=== PATIENT | female | born 1995 | race African-American/Black ===

== ENCOUNTER 2024-11-06 21:08 | Inpatient (IN) | payer OTHER ==
[~2024-11-06] VITALS: Ht 175.3 cm; Wt 76.5 kg
[2024-11-06] MEDS: DiphenhydrAMINE HCL 50 MG/ML VIAL IM ONE (22:46)
[2024-11-06] MEDS: HALOPERIDOL LACTATE 5 MG/ML VIAL IM ONE (22:46)
[2024-11-06] MEDS: LORazepam 2 MG/ML VIAL IM ONE (22:47)
[2024-11-06 22:49] LABS: COVID AG,FIA SOURCE NASAL SWAB
[2024-11-06 23:12] LABS: SARS-COV2 (COVID) ANTIGEN,FIA Negative (Negative)
[2024-11-07] MEDS: ZIPRASIDONE MESYLATE 20 MG/VIAL IM ONE (00:50)
[2024-11-07 02:53] VITALS: O2SAT 100
[2024-11-07] MEDS ORDERED: ChlorproMAZINE HCL 25 MG TABLET PO PRN (03:30)
[2024-11-07] MEDS ORDERED: ZOLPIDEM TARTRATE 10 MG TABLET PO PRN (03:30)
[2024-11-07 05:53] VITALS: BP 149/94; PULSE 93; RESP 18; TEMP 97.5; O2SAT 99
[2024-11-07 08:25] LABS: BASOPHILS % (AUTO) 0.3 % (0.0-2.0); EOSINOPHILS % (AUTO) 1.1 % (1.0-6.0); HEMATOCRIT 41.7 % (36-46); HEMOGLOBIN 13.7 g/dL (12.0-16.0); LYMPHOCYTES # (AUTO) 3.3 K/uL (1.0-4.8); MEAN CORPUSCULAR HGB CONC 32.9 G/dL (31.0-37.0); MEAN CORPUSCULAR VOLUME 94 fL (80-100); MONOCYTES # (AUTO) 1.3 K/uL (0.1-1.0); MONOCYTES % (AUTO) 15.2 % (2.0-9.0); NEUTROPHILS # (AUTO) 3.9 K/uL (1.8-7.7); NEUTROPHILS % (AUTO) 45.4 % (40.0-70.0); PLATELET COUNT (AUTO) 240 K/uL (150-450); RED BLOOD CELL COUNT(AUTO) 4.44 MIL/uL (4.00-5.20); RED CELL DISTRIBUTION WIDTH 13.4 % (11.5-14.5); WHITE BLOOD COUNT (AUTO) 8.6 K/uL (4.5-11.0)
[2024-11-07 08:35] LABS: ANION GAP 7 mmol/L (8-16); CALCIUM, TOTAL 9.1 mg/dL (8.8-10.5); CARBON DIOXIDE 24 mmol/L (22-29); CHLORIDE 108 mmol/L (98-107); CREATININE 0.78 mg/dL (0.60-1.30); GLOMERULAR FILTR. RATE CALC > 60 mL/min (>60); GLUCOSE,RANDOM 86 mg/dL (70-110); SODIUM SERUM 139 mmol/L (136-145); UREA NITROGEN, BLOOD 10 mg/dL (7-18)
[2024-11-07 08:45] LABS: ALCOHOL, BLOOD (SERUM) < 3 mg/dL (0-10)
[2024-11-07] MEDS ORDERED: BENZOCAINE/MENTHOL [CEPACOL] LOZENGE PO PRN (10:15)
[2024-11-07] MEDS ORDERED: OMEPRAZOLE 20 MG CAPSULE PO PRN (10:15)
[2024-11-07] MEDS ORDERED: MAGNESIUM HYDROXIDE SUSPENSION 30 ML UDCUP PO PRN (10:15)
[2024-11-07] MEDS ORDERED: IBUPROFEN 600 MG TABLET PO PRN (10:15)
[2024-11-07] MEDS ORDERED: ONDANSETRON 4 MG TABLET PO PRN (10:15)
[2024-11-07] MEDS ORDERED: DOCUSATE SODIUM 100 MG CAPSULE PO PRN (10:15)
[2024-11-07] MEDS ORDERED: ACETAMINOPHEN 325 MG TABLET PO PRN (10:15)
[2024-11-07] MEDS ORDERED: PETROLATUM,WHITE 28 GM JELLY TP PRN (10:15)
[2024-11-07] MEDS ORDERED: MAG HYDROX/ALUMINUM HYD/SIMETH ES 30 ML SUSPENSION UDCUP PO PRN (10:15)
[2024-11-07] MEDS ORDERED: LOPERAMIDE HCL 2 MG CAPSULE PO PRN (10:15)
[2024-11-07] MEDS ORDERED: CloNIDine HCL 0.1 MG TABLET PO PRN (10:15)
[2024-11-07] MEDS ORDERED: ALBUTEROL SULFATE HFA 90 MCG/PUFF 8 GM INHALER IH PRN (10:15)
[2024-11-07] MEDS ORDERED: BACITRACIN 28 GM OINTMENT TP PRN (10:15)
[2024-11-07 10:35] VITALS: RESP 18
[2024-11-07] MEDS: LORazepam 1 MG TABLET PO PRN (15:28)
[2024-11-07] MEDS: MELATONIN 5 MG TABLET PO SCH (21:00)
[2024-11-07 22:47] VITALS: BP 137/80; PULSE 94; RESP 18; TEMP 98; O2SAT 100
[2024-11-08] MEDS: ARIPiprazole 5 MG TABLET PO SCH (08:34)
[2024-11-08 13:10] VITALS: BP 130/82; PULSE 109; RESP 16; TEMP 97.7; O2SAT 98
[2024-11-08 20:05] VITALS: BP 160/77; PULSE 102; RESP 18; TEMP 98; O2SAT 100
[2024-11-09 08:24] VITALS: BP 144/90; PULSE 78; RESP 18; TEMP 97; O2SAT 97
[2024-11-09] MEDS ORDERED: ARIP5TAB37 PO (14:46)
[2024-11-09] MEDS ORDERED: MELA5TAB40 PO (14:46)
[2024-11-09] MEDS: OLANZapine 5 MG TABLET PO SCH (21:09)
[2024-11-10 09:23] VITALS: BP 135/80; PULSE 66; RESP 17; TEMP 97.8; O2SAT 98
[2024-11-10 14:51] LABS: APPEARANCE,URINE CLEAR (CLEAR); BILIRUBIN,URINE NEGATIVE (NEGATIVE); COLOR,URINE COLORLESS (YELLOW); GLUCOSE, URINE (UA) NEGATIVE (NEGATIVE); KETONES,URINE NEGATIVE (NEGATIVE); LEUKOCYTE ESTERASE ,URINE NEGATIVE (NEGATIVE); NITRATE,URINE NEGATIVE (NEGATIVE); OCCULT BLOOD,URINE NEGATIVE (NEGATIVE); PROTEIN,URINE NEGATIVE (NEGATIVE); SPECIFIC GRAVITIY, URINE 1.009 (1.003-1.030); UROBILINOGEN,URINE <=1.0 mg/dL (<=1.0)
[2024-11-10 14:55] LABS: ALCOHOL, URINE DRUG SCREEN NEGATIVE (NEGATIVE); AMPHET/METH SCREEN,URINE NEGATIVE (NEGATIVE); BARBITURATE SCREEN, URINE NEGATIVE (NEGATIVE); BENZODIAZEPINES SCREEN,URINE NEGATIVE (NEGATIVE); CANNABINOID SCREEN,URINE POSITIVE (NEGATIVE); COCAINE SCREEN,URINE NEGATIVE (NEGATIVE); METHADONE SCREEN, URINE NEGATIVE (NEGATIVE); OPIATE SCREEN,URINE NEGATIVE (NEGATIVE); PHENCYCLIDINE SCREEN,URINE NEGATIVE (NEGATIVE)
[2024-11-10 23:55] VITALS: BP 117/83; PULSE 86; RESP 18; TEMP 97.2; O2SAT 97
[2024-11-11 09:24] VITALS: PULSE 70; RESP 17; TEMP 98; O2SAT 100
[2024-11-11 22:41] VITALS: BP 133/88; PULSE 69; RESP 18; TEMP 97.7; O2SAT 100
[2024-11-12 11:51] VITALS: BP 138/77; PULSE 113; RESP 17; TEMP 96.6; O2SAT 99
[2024-11-12 20:48] VITALS: BP 132/87; PULSE 88; RESP 18; TEMP 96.8; O2SAT 88; O2SAT 98
[2024-11-13] MEDS ORDERED: ChlorproMAZINE HCL 50 MG TABLET PO PRN (08:15)
[2024-11-13 08:31] VITALS: BP 32/90; PULSE 81; RESP 17; TEMP 97.9; O2SAT 96
[2024-11-13] MEDS ORDERED: MELA5TAB40 PO (14:59)
[2024-11-13] MEDS ORDERED: OLAN5TAB52 PO (14:59)
[2024-11-14] MEDS ORDERED: MELA5TAB40 PO (15:04)
[2024-11-14] MEDS ORDERED: OLAN5TAB52 PO (15:04)
== END 2024-11-13 17:20 | disposition home or self-care (01) | DRG 885 ==
LOC: EMS 21:08 → 3EC 11-07 05:30 → UNDOADMIN 11-07 05:30 → 3EC 11-07 05:58 → 3EI 11-10 08:14 → 3EC 11-10 08:14
PROVIDERS: ADMIT Psychiatry & Neurology Psychiatry; ATTEND Psychiatry & Neurology Psychiatry
PROC: GZHZZZZ Group Psychotherapy (ICD-10-PCS; principal; 2024-11-08)
PROC: GZ56ZZZ Individual Psychotherapy, Supportive (ICD-10-PCS; 2024-11-08)
DX: F25.0 Schizoaffective disorder, bipolar type (principal); F41.9 Anxiety disorder, unspecified; G47.00 Insomnia, unspecified; I10 Essential (primary) hypertension; K21.9 Gastro-esophageal reflux disease without esophagitis; Z20.822 Contact with and (suspected) exposure to COVID-19; F17.200 Nicotine dependence, unspecified, uncomplicated; F19.959 Other psychoactive substance use, unspecified with psychoactive substance-induced psychotic disorder, unspecified; Z55.9 Problems related to education and literacy, unspecified; J44.9 Chronic obstructive pulmonary disease, unspecified; Z56.0 Unemployment, unspecified; Z59.9 Problem related to housing and economic circumstances, unspecified; Z63.9 Problem related to primary support group, unspecified; Z65.3 Problems related to other legal circumstances; Z78.1 Physical restraint status; Z91.199 Patient's noncompliance with other medical treatment and regimen due to unspecified reason
CPT/HCPCS: 80048; 80307; 81003; 84703; 85025; 99285; G0480; J1200; J1630; J2060; J3486